=== PATIENT | female | born 1990 | race African-American/Black ===

== ENCOUNTER 2021-10-01 11:22 | Outpatient (CLI) | payer OTHER ==
[2021-10-01 11:50] LABS: BASOPHILS % (AUTO) 0.6 % (0.0-2.0); EOSINOPHILS % (AUTO) 0.3 % (0.0-4.0); HEMATOCRIT 38.6 % (36-48); HEMOGLOBIN 13.2 g/dL (12.0-16.0); LYMPHOCYTES # (AUTO) 2.2 K/uL (1.0-5.5); LYMPHOCYTES % (AUTO) 28.5 % (20.5-51.5); MEAN CORPUSCULAR HEMOGLOBIN 30 pg (27-31); MEAN CORPUSCULAR HGB CONC 34 % (32-36); MEAN CORPUSCULAR VOLUME 89 fL (79.0-98.0); MONOCYTES # (AUTO) 0.6 K/uL (0.0-1.0); MONOCYTES % (AUTO) 8.3 % (1.7-9.3); NEUTROPHILS # (AUTO) 4.7 K/uL (1.8-7.7); NEUTROPHILS % (AUTO) 62.3 % (40.0-70.0); PLATELET COUNT (AUTO) 224 K/uL (130-430); RED BLOOD CELL COUNT(AUTO) 4.36 MIL/uL (4.2-6.2); RED CELL DISTRIBUTION WIDTH 12.8 % (9.0-15.0); WHITE BLOOD COUNT (AUTO) 7.6 K/uL (4.8-10.8)
[2021-10-02 06:06] LABS: HEPATITIS B SURFACE AG Negative (Negative); RUBELLA AB, IgG 3.87 index (Immune >0.99)
== END 2021-10-01 21:02 | disposition home or self-care (01) ==
LOC: SLB 11:22
PROVIDERS: ATTEND Specialist
DX: Z34.82 Encounter for supervision of other normal pregnancy, second trimester (principal); Z3A.00 Weeks of gestation of pregnancy not specified
CPT/HCPCS: 36415; 85025; 86592; 86762; 86886; 86900; 86901; 87340

== ENCOUNTER 2022-02-28 10:23 | Observation (INO) | payer OTHER ==
[~2022-02-28] VITALS: Ht 160 cm; Wt 86.2 kg
== END 2022-02-28 12:20 | disposition home or self-care (01) ==
LOC: SPU 10:23
PROVIDERS: ADMIT Specialist; ATTEND Specialist
DX: O24.313 Unspecified pre-existing diabetes mellitus in pregnancy, third trimester (principal); Z3A.33 33 weeks gestation of pregnancy; Z79.4 Long term (current) use of insulin
CPT/HCPCS: 82962; G0379; G0378

== ENCOUNTER 2022-03-15 11:12 | Observation (INO) | payer OTHER ==
[~2022-03-15] VITALS: Ht 160 cm; Wt 83.9 kg
== END 2022-03-15 15:05 | disposition home or self-care (01) ==
LOC: SPU 11:12
PROVIDERS: ADMIT Specialist; ATTEND Specialist
DX: Z34.83 Encounter for supervision of other normal pregnancy, third trimester (principal); Z3A.35 35 weeks gestation of pregnancy
CPT/HCPCS: 76815; G0378

== ENCOUNTER 2022-03-18 12:04 | Inpatient (IN) | payer OTHER ==
[~2022-03-18] VITALS: Ht 160 cm; Wt 83.9 kg
[2022-03-18] MEDS ORDERED: OXYTOCIN/0.9 % SODIUM CHLORIDE 1,000 ML IV SCH (13:30)
[2022-03-18] MEDS ORDERED: NALBUPHINE HCL 10 MG/ML AMP IVP PRN (13:30)
[2022-03-18] MEDS ORDERED: TERBUTALINE SULFATE 1 MG/ML VIAL SUBCUT ONE (13:30)
[2022-03-18] MEDS ORDERED: LR 1,000 ML IV ONE (13:30)
[2022-03-18 14:09] LABS: CALCIUM 9.1 mg/dL (8.4-11.0)
[2022-03-18 14:17] LABS: BASOPHILS % (AUTO) 0.4 % (0.0-2.0); EOSINOPHILS % (AUTO) 0.4 % (0.0-4.0); HEMATOCRIT 36.4 % (36-48); HEMOGLOBIN 12.5 g/dL (12.0-16.0); LYMPHOCYTES # (AUTO) 1.7 K/uL (1.0-5.5); LYMPHOCYTES % (AUTO) 20.3 % (20.5-51.5); MEAN CORPUSCULAR HEMOGLOBIN 31 pg (27-31); MEAN CORPUSCULAR HGB CONC 34 % (32-36); MEAN CORPUSCULAR VOLUME 90 fL (79.0-98.0); MONOCYTES # (AUTO) 0.7 K/uL (0.0-1.0); NEUTROPHILS # (AUTO) 6.1 K/uL (1.8-7.7); NEUTROPHILS % (AUTO) 70.9 % (40.0-70.0); PLATELET COUNT (AUTO) 204 K/uL (130-430); RED BLOOD CELL COUNT(AUTO) 4.04 MIL/uL (4.2-6.2); RED CELL DISTRIBUTION WIDTH 13.4 % (9.0-15.0); WHITE BLOOD COUNT (AUTO) 8.6 K/uL (4.8-10.8)
[2022-03-18 14:24] LABS: ALBUMIN 2.3 g/dL (3.4-4.8); TOTAL BILIRUBIN 0.3 mg/dL (0.0-1.0)
[2022-03-18 15:45] VITALS: BP_SYST 125
[2022-03-18] MEDS ORDERED: INSULIN Lispro 100 UNITS/ML, 3 ML VIAL (humaLOG) ONE (20:12)
[2022-03-18] MEDS: INSULIN LISPRO SLIDING SCALE 100 UNITS/ML, 3 ML VIAL (humaLOG) SUBCUT PRN (20:15)
[2022-03-18] MEDS: LR 1,000 ML IV SCH (21:12)
[2022-03-19] MEDS ORDERED: INSULIN Lispro 100 UNITS/ML, 3 ML VIAL (humaLOG) ONE ×2 (00:08→21:27)
[2022-03-19] MEDS: INSULIN LISPRO SLIDING SCALE 100 UNITS/ML, 3 ML VIAL (humaLOG) SUBCUT PRN ×2 (00:11→21:49)
[2022-03-19] MEDS: LR 1,000 ML IV SCH (03:59)
[2022-03-19] MEDS ORDERED: CEFAZOLIN 2 GM IVPB PREMIX 50 ML IV ONE (14:00)
[2022-03-19] MEDS ORDERED: OXYTOCIN 10 UNIT/ML VIAL ONE (16:00)
[2022-03-19] MEDS ORDERED: LR 1,000 ML IV.SOLN IV ONE (16:00)
[2022-03-19] MEDS ORDERED: NS IRRIG SOLN 1000 ML IR ONE (16:00)
[2022-03-19] MEDS ORDERED: MORPHINE SULFATE 10MG/10ML PF AMP ONE (16:00)
[2022-03-19] MEDS ORDERED: DIPHENHYDRAMINE INJ 50 MG/ML VIAL IVP PRN (16:45)
[2022-03-19] MEDS ORDERED: ONDANSETRON HCL 4 MG/2 ML VIAL IVP PRN ×2 (16:45)
[2022-03-19] MEDS ORDERED: KETOROLAC TROMETHAMINE 60 MG/2 ML VIAL IM PRN (16:45)
[2022-03-19] MEDS ORDERED: fentaNYL CITRATE/PF 100 MCG/2 ML AMP IVP PRN ×2 (16:45)
[2022-03-19] MEDS ORDERED: NALOXONE HCL 0.4 MG/ML AMP (NARCAN) IVP PRN ×3 (16:45→17:00)
[2022-03-19] MEDS ORDERED: METOCLOPRAMIDE HCL 10 MG/2 ML VIAL IVP PRN (16:45)
[2022-03-19] MEDS ORDERED: NALBUPHINE HCL 10 MG/ML AMP IVP PRN (16:45)
[2022-03-19] MEDS ORDERED: MORPHINE SULFATE 10MG/10ML PF AMP SP SCH (16:45)
[2022-03-19 16:58] VITALS: BP_SYST 119
[2022-03-19] MEDS ORDERED: ANUSOL 1 EA SUPP.RECT (PREPARATION H) RC PRN (17:00)
[2022-03-19] MEDS ORDERED: BISACODYL 10 MG/SUPPOSITORY RC PRN (17:00)
[2022-03-19] MEDS ORDERED: LR 1,000 ML IV SCH (17:00)
[2022-03-19] MEDS ORDERED: DIPHTH,PERTUSS(ACELL),TET VAC 0.5 ML VIAL (Tdap) I.M. PRN (17:00)
[2022-03-19] MEDS ORDERED: HYDROcodone/ACETAMIN 5-325 MG TAB (NORCO/ VICODIN) PO PRN (17:00)
[2022-03-19] MEDS ORDERED: LANOLIN 7 GM OINT. TP PRN (17:00)
[2022-03-19] MEDS ORDERED: MEASLES,MUMPS&RUBELLA VACC/PF 12500 UNIT/0.5 ML VIAL SUBQ PRN (17:00)
[2022-03-19] MEDS ORDERED: TEMAZEPAM 15 MG CAPSULE PO PRN (17:00)
[2022-03-19] MEDS ORDERED: RHO(D) IMMUNE GLOBULIN/MALTOSE 1500 UNITS/1.3 ML (WINHRO) IM PRN (17:00)
[2022-03-19] MEDS ORDERED: OXYTOCIN/0.9 % SODIUM CHLORIDE 1,000 ML IV SCH (17:00)
[2022-03-19] MEDS ORDERED: fentaNYL CITRATE/PF 100 MCG/2 ML AMP ONE (17:43)
[2022-03-19] MEDS: DOCUSATE SODIUM 100 MG CAPSULE PO SCH (21:45)
[2022-03-19] MEDS: SENNOSIDES/DOCUSATE SODIUM 1 TAB TABLET(SENOKOT-S) PO SCH (21:45)
[2022-03-20] MEDS: CEFAZOLIN 1 GM IVPB PREMIX 50 ML IV SCH ×3 (00:06→12:17)
[2022-03-20] MEDS: INSULIN LISPRO SLIDING SCALE 100 UNITS/ML, 3 ML VIAL (humaLOG) SUBCUT PRN ×5 (01:04→21:21)
[2022-03-20] MEDS ORDERED: INSULIN Lispro 100 UNITS/ML, 3 ML VIAL (humaLOG) ONE ×5 (01:05→21:15)
[2022-03-20] MEDS: LR 1,000 ML IV SCH (04:57)
[2022-03-20] MEDS ORDERED: KETOROLAC TROMETHAMINE 30 MG VIAL IVP SCH (06:00)
[2022-03-20 07:15] LABS: BASOPHILS # (AUTO) 0.1 K/uL (0.0-0.2); BASOPHILS % (AUTO) 0.6 % (0.0-2.0); EOSINOPHILS % (AUTO) 0.2 % (0.0-4.0); HEMATOCRIT 25.5 % (36-48); HEMOGLOBIN 8.8 g/dL (12.0-16.0); LYMPHOCYTES # (AUTO) 1.8 K/uL (1.0-5.5); LYMPHOCYTES % (AUTO) 14.9 % (20.5-51.5); MEAN CORPUSCULAR HEMOGLOBIN 31 pg (27-31); MEAN CORPUSCULAR HGB CONC 35 % (32-36); MEAN CORPUSCULAR VOLUME 90 fL (79.0-98.0); NEUTROPHILS # (AUTO) 9.1 K/uL (1.8-7.7); NEUTROPHILS % (AUTO) 76.3 % (40.0-70.0); PLATELET COUNT (AUTO) 176 K/uL (130-430); RED BLOOD CELL COUNT(AUTO) 2.83 MIL/uL (4.2-6.2); RED CELL DISTRIBUTION WIDTH 13.4 % (9.0-15.0); WHITE BLOOD COUNT (AUTO) 11.9 K/uL (4.8-10.8)
[2022-03-20] MEDS ORDERED: INSULIN LISPRO SLIDING SCALE 100 UNITS/ML, 3 ML VIAL (humaLOG) SUBCUT PRN (13:45)
[2022-03-20] MEDS ORDERED: GLUCOSE (DEXTROSE) ORAL GEL -Adults PO PRN (14:15)
[2022-03-20] MEDS ORDERED: D5W 1,000 ML IV PRN (14:15)
[2022-03-20] MEDS ORDERED: DEXTROSE 50%-WATER 50 ML DISP.SYRIN IVP PRN (14:15)
[2022-03-20] MEDS: IBUPROFEN 600 MG TABLET PO SCH (18:23)
[2022-03-20] MEDS: OXYCODONE/ACETAMINOPHEN 5-325 TABLET PO PRN (18:23)
[2022-03-20] MEDS: SENNOSIDES/DOCUSATE SODIUM 1 TAB TABLET(SENOKOT-S) PO SCH (20:07)
[2022-03-20] MEDS: DOCUSATE SODIUM 100 MG CAPSULE PO SCH (20:07)
[2022-03-20] MEDS: OXYCODONE/ACETAMINOPHEN *10*mg/325 mg TABLET PO PRN (23:09)
[2022-03-21] MEDS: IBUPROFEN 600 MG TABLET PO SCH ×4 (00:14→17:57)
[2022-03-21] MEDS ORDERED: INSULIN Lispro 100 UNITS/ML, 3 ML VIAL (humaLOG) ONE ×4 (08:45→17:59)
[2022-03-21] MEDS: SIMETHICONE 80 MG TAB.CHEW PO PRN ×3 (08:50→17:56)
[2022-03-21] MEDS: INSULIN LISPRO SLIDING SCALE 100 UNITS/ML, 3 ML VIAL (humaLOG) SUBCUT PRN ×3 (13:02→17:59)
[2022-03-21] MEDS: OXYCODONE/ACETAMINOPHEN 5-325 TABLET PO PRN ×2 (13:19→17:57)
[2022-03-21] MEDS: OXYCODONE/ACETAMINOPHEN *10*mg/325 mg TABLET PO PRN (21:03)
[2022-03-22] MEDS: IBUPROFEN 600 MG TABLET PO SCH ×5 (00:05→23:57)
[2022-03-22] MEDS: DOCUSATE SODIUM 100 MG CAPSULE PO SCH (09:30)
[2022-03-22] MEDS: SIMETHICONE 80 MG TAB.CHEW PO PRN ×3 (09:30→18:41)
[2022-03-22] MEDS: OXYCODONE/ACETAMINOPHEN *10*mg/325 mg TABLET PO PRN (09:31)
[2022-03-22] MEDS ORDERED: INSULIN Lispro 100 UNITS/ML, 3 ML VIAL (humaLOG) ONE (11:06)
[2022-03-22] MEDS: OXYCODONE/ACETAMINOPHEN 5-325 TABLET PO PRN (20:07)
[2022-03-23] MEDS: OXYCODONE/ACETAMINOPHEN 5-325 TABLET PO PRN ×2 (05:50→14:43)
[2022-03-23] MEDS: IBUPROFEN 600 MG TABLET PO SCH ×2 (05:50→12:23)
[2022-03-23] MEDS: SIMETHICONE 80 MG TAB.CHEW PO PRN (10:15)
[2022-03-23] MEDS ORDERED: OXYC-128 PO (14:40)
== END 2022-03-23 15:00 | disposition home or self-care (01) | DRG 786 ==
LOC: SPU 12:04 → OBSVTOIN 12:04 → SPU 13:10
PROVIDERS: ADMIT Specialist; ATTEND Specialist
PROC: 10D00Z1 Extraction of Products of Conception, Low, Open Approach (ICD-10-PCS; principal; 2022-03-19 16:05)
DX: O76 Abnormality in fetal heart rate and rhythm complicating labor and delivery (principal); O24.02 Pre-existing type 1 diabetes mellitus, in childbirth; O41.03X0 Oligohydramnios, third trimester, not applicable or unspecified; O69.81X0 Labor and delivery complicated by cord around neck, without compression, not applicable or unspecified; Z20.822 Contact with and (suspected) exposure to COVID-19; Z37.0 Single live birth; Z3A.36 36 weeks gestation of pregnancy; Z79.4 Long term (current) use of insulin
CPT/HCPCS: 36415; 80053; 81002; 82962; 85025; 86592; 86886; 86900; 86901; 87081; 94760; J0690; J1200; J1885; J2274; J2405; J2590; J3010; J7120